=== PATIENT | male | born 1960 | race Caucasian/White ===

== ENCOUNTER 2018-09-04 08:37 | Emergency (ER) | payer OTHER ==
[~2018-09-04] VITALS: Ht 177.8 cm; Wt 100.0 kg
[2018-09-04] MEDS ORDERED: ATOR1TAB21 PO (08:45)
[2018-09-04] MEDS ORDERED: TGTSUS3 PO (08:45)
[2018-09-04] MEDS ORDERED: dayquil (08:46)
[2018-09-04] MEDS ORDERED: KETOROLAC 60 MG/2 ML VIAL (J1885) IM ONE (09:15)
--- NOTE | 2018-09-04 10:03 | REP ---
Right lower extremity Duplex Doppler venous ultrasound: Real time compression and duplex Doppler interrogation of the right lower extremity deep venous system is performed. The right common femoral, superficial femoral and popliteal veins are fully compressible with transducer pressure and demonstrate normal spontaneous and phasic flow, without evidence of deep venous thrombosis. Impression: No evidence of deep venous thrombosis of the right lower extremity femoral popliteal venous system. Electronically Signed by Chema Ochoa MD 09/04/2018 09:54 A
--- NOTE | 2018-09-04 10:35 | REP ---
Post right hip: Three views. History: Pain. Findings: AP view of the pelvis and AP and frog-leg views of the right are presented. Femoral heads are smooth and rounded and hip joint spaces are preserved bilaterally. Periarticular soft tissues are unremarkable. Bony pelvic ring is intact. Sacrum and SI joints are intact. Symphysis pubis is unremarkable. The visualized bowel gas pattern is normal. Psoas margins and flank stripes are intact. Impression: Negative radiographs of the pelvis and right hip. Electronically Signed by Sharad Velez MD 09/04/2018 10:26 A
[2018-09-04 11:34] VITALS: BP 152/91
[2018-09-04] MEDS ORDERED: PRED20TA PO (11:34)
[2018-09-04] MEDS ORDERED: CYCL5TAB PO (11:34)
[2018-09-04] MEDS ORDERED: GABA-843 PO (11:34)
== END 2018-09-04 11:41 | disposition home or self-care (01) ==
LOC: M ED 08:37
DX: M79.651 Pain in right thigh (principal); E78.5 Hyperlipidemia, unspecified; Z79.899 Other long term (current) drug therapy; Z88.1 Allergy status to other antibiotic agents
CPT/HCPCS: 73502; 93971; 96372; 99283; J1885